=== PATIENT | male | born 1960 | race Caucasian/White ===

== ENCOUNTER → 2016-08-30 | Outpatient (CLI) | payer OTHER | END | disposition home or self-care (01) | LOC: CRE 10:41 | PROVIDERS: ATTEND Specialist | DX: I21.3 ST elevation (STEMI) myocardial infarction of unspecified site (principal); Z95.5 Presence of coronary angioplasty implant and graft | CPT/HCPCS: 93797 ==

== ENCOUNTER 2018-12-09 22:00 | Emergency (ER) | payer OTHER ==
[~2018-12-09] VITALS: Ht 170.2 cm; Wt 82.9 kg
[~2018-12-09 22:00] MED LIST: ASPI-535 PO; ATOR-2 PO; ATOR20TA38 PO; AZIT250T13 PO; BENZ1LOZ52 MM; CARV3.1260 PO; CLOP75TA19 PO; EMPA25TA PO; GLIP10TA14 PO; LISI-313 PO; LISI2.5T59 PO; MTF1000T PO
[2018-12-09 22:04] VITALS: Ht 170.2 cm; Wt 82.9 kg
[2018-12-09] MEDS ORDERED: SOD CHLORIDE 0.9% 500 ML IV STA (22:28)
[2018-12-09] MEDS ORDERED: morphine 4 MG/ML VIAL IV STA (22:28)
[2018-12-09] MEDS ORDERED: ONDANSETRON 4 MG INJ IV STA (22:28)
--- NOTE | 2018-12-10 04:44 | ERD ---
ER Documentation Chief Complaint Chief Complaint [id number],from home,epigastric pain,hx [place] X2 HPI This is a 58-year-old male comes in with planes of shortness of breath and diaphoresis that started around. Pain is in the epigastric region radiates to his chest. His recent Chris cath at another hospital and found to have an occluded stent. Stent was reopened. He said this feels similar to previous episodes. Denies fevers or chills. Denies any other current complaints. ROS All systems reviewed and are negative except as per history of present illness. Medications Home Meds Reported Medications Benzocaine/Menthol* (Cepacol* Sore Throat Lozenges) 1 Each Lozenge, 1 EACH MM q2h PRN for SORE THROAT, LOZENGE 12/10/18 Atorvastatin* (Atorvastatin*) 80 Mg Tablet, 80 MG PO QHS, #30 TAB 12/10/18 Metformin* (Glucophage*) 1,000 Mg Tablet, 1000 MG PO DAILY, #30 TAB 12/10/18 Carvedilol* (Carvedilol*) 3.125 Mg Tablet, 3.125 MG PO BID, #60 TAB 12/10/18 Clopidogrel Bisulfate* (Clopidogrel Bisulfate*) 75 Mg Tablet, 75 MG PO DAILY, #30 TAB 12/10/18 Lisinopril* (Lisinopril*) 2.5 Mg Tablet, 2.5 MG PO DAILY, #30 TAB 12/10/18 Aspirin Ec (Aspir 81) 81 Mg Tablet.dr, 81 MG PO DAILY, #30 TAB 12/10/18 Azithromycin* (Azithromycin*) 250 Mg Tablet, 250 MG PO DAILY, #4 TAB 12/10/18 Empagliflozin (Jardiance) 25 Mg Tablet, 25 MG PO, TAB 12/10/18 Atorvastatin Calcium* (Atorvastatin Calcium*) 20 Mg Tablet, 20 MG PO QHS, #30 TAB 12/10/18 Glipizide* (Glipizide*) 10 Mg Tablet, 10 MG PO DAILY, TAB 12/10/18 Lisinopril* (Lisinopril*) 5 Mg Tablet, 5 MG PO QPM, #30 TAB 12/10/18 Allergies Allergies: Coded Allergies: No Known Allergy (Unverified , 12/09/18) PMhx/Soc History of Surgery: Yes (HERNIA REPAIR, STENT PLACEMENT) Hx Neurological Disorder: Yes (TIA) Hx Respiratory Disorders: No Hx Cardiac Disorders: Yes ([place]) Hx Psychiatric Problems: No Hx Miscellaneous Medical Probl: Yes (DM) Hx Alcohol Use: Yes (OCCASIONAL) Hx Substance Use: No Hx Tobacco Use: No Smoking Status: Never smoker Physical Exam Vitals Vital Signs Date Temp Pulse Resp B/P (MAP) Pulse Ox O2 O2 Flow FiO2 Time Delivery Rate 12/10/18 87 10 96/62 (73) 97 Room Air 04:00 12/10/18 97 12 92/63 (73) 97 Room Air 01:28 12/09/18 94 15 101/67 97 Room Air 23:46 (78) 12/09/18 87 15 124/80 99 Room Air 22:15 (95) 12/09/18 98.4 85 16 124/80 98 22:04 (95) Physical Exam Const: No acute distress Head: Atraumatic Eyes: Normal Conjunctiva ENT: Normal External Ears, Nose and Mouth. Neck: Full range of motion. No meningismus. Resp: Clear to auscultation bilaterally Cardio: Regular rate and rhythm, no murmurs Abd: Soft, non tender, non distended. Normal bowel sounds Skin: No petechiae or rashes Back: No midline or flank tenderness Ext: No cyanosis, or edema Neur: Awake and alert Psych: Normal Mood and Affect Result Diagram: 12/09/18220412/09/182204 Results 24 hrs Laboratory Tests Test 12/09/18 22:05 12/09/18 22:45 12/10/18 03:54 White Blood Count 11.9 10^3/ul Red Blood Count 5.14 10^6/ul Hemoglobin 13.6 g/dl Hematocrit 42.9 % Mean Corpuscular Volume 83.5 fl Mean Corpuscular Hemoglobin 26.5 pg Mean Corpuscular 31.7 g/dl Hemoglobin Concent Red Cell Distribution Width 12.7 % Platelet Count 588 10^3/UL Mean Platelet Volume 9.0 fl Immature Granulocytes % 0.800 % Neutrophils % 65.8 % Lymphocytes % 22.8 % Monocytes % 7.1 % Eosinophils % 3.0 % Basophils % 0.5 % Nucleated Red Blood Cells % 0.0 /100WBC Immature Granulocytes # 0.100 10^3/ul Neutrophils # 7.8 10^3/ul Lymphocytes # 2.7 10^3/ul Monocytes # 0.8 10^3/ul Eosinophils # 0.4 10^3/ul Basophils # 0.1 10^3/ul Nucleated Red Blood Cells # 0.0 10^3/ul Sodium Level 139 mmol/L Potassium Level 4.1 mmol/L Chloride Level 102 mmol/L Carbon Dioxide Level 29 mmol/L Anion Gap 8 Blood Urea Nitrogen 14 mg/dl Creatinine 0.84 mg/dl Est Glomerular Filtrat > 60 mL/min Rate mL/min Glucose Level 160 mg/dl Calcium Level 9.0 mg/dl Total Bilirubin 0.4 mg/dl Direct Bilirubin 0.00 mg/dl Indirect Bilirubin 0.4 mg/dl Aspartate Amino 32 IU/L Transf (AST/SGOT) Alanine 73 IU/L Aminotransferase (ALT/SGPT) Alkaline Phosphatase 62 IU/L Troponin I < 0.012 ng/ml < 0.012 ng/ml Total Protein 7.4 g/dl Albumin 3.7 g/dl Globulin 3.70 g/dl Albumin/Globulin Ratio 1.00 Lipase 97 U/L Urine Color YELLOW Urine Clarity CLEAR Urine pH 5.0 Urine Specific [place] 1.039 Urine Ketones 1+ mg/dL Urine Nitrite NEGATIVE mg/dL Urine Bilirubin NEGATIVE mg/dL Urine Urobilinogen NEGATIVE mg/dL Urine Leukocyte Esterase NEGATIVE Mercedes/ul Urine Hemoglobin NEGATIVE mg/dL Urine Glucose 3+ mg/dL Urine Total Protein NEGATIVE mg/dl Current Medications Medications Dose Sig/Nicholas Start Time Status Last (Trade) Ordered Route PRN Stop Time Admin Dose Reason Admin Sodium 500 ml @ Q1H STAT 12/09/18 DC 12/09/18 Chloride 500 mls/hr IV 22:28 22:37 12/09/18 23:27 Morphine 4 mg ONCE STAT 12/09/18 DC 12/09/18 Sulfate IV 22:28 22:36 (morphine) 12/09/18 22:30 Ondansetron 4 mg ONCE STAT 12/09/18 DC 12/09/18 HCl (Zofran IV 22:28 22:36 Inj) 12/09/18 22:30 Procedures/MDM EKG: Rate/Rhythm: [Normal Sinus Rhythm] QRS, ST, T-waves: [No changes consistent w/ acute ischemia] Impression: [No evidence of ischemia or arrhythmia] Chest X-ray 1V Interpreted by me: Soft Tissue: No acute abnormalities Bones: No acute abnormalities Mediastinum/Cardiac Silhouette/Lungs: [No acute abnormalities] Patient's symptoms are concerning for cardiac cause will require inpatient workup and continuous monitoring. Further w/u for ischemia, arrhythmia, PE or dissection will be deferred to the inpatient team. Patient will be transferred to [facility] via [facility] Accepting Care Team: Current data and ongoing care discussed. Time: 4 AM Primary Provider: Harinder REARDON Consulting: Per [place] Outstanding Data: none Departure Diagnosis: Primary Impression: Epigastric pain Condition: Serious MATT NEGERTE Dec 10, 2018 04:44
[2018-12-10] MEDS ORDERED: SOD CHLORIDE 0.9% 500 ML IV STA (06:52)
[2018-12-10 08:31] VITALS: BP 108/60; PULSE 87; RESP 15
== END 2018-12-10 08:52 | disposition short-term general hospital (02) ==
LOC: E/R 22:00
DX: R10.13 Epigastric pain (principal); E11.9 Type 2 diabetes mellitus without complications; I25.2 Old myocardial infarction; Z79.02 Long term (current) use of antithrombotics/antiplatelets; Z79.82 Long term (current) use of aspirin; Z79.84 Long term (current) use of oral hypoglycemic drugs; Z86.73 Personal history of transient ischemic attack (TIA), and cerebral infarction without residual deficits; Z98.61 Coronary angioplasty status
CPT/HCPCS: 36415; 71045; 80053; 81003; 83690; 84484; 85025; 93005; 96374; 96375; 99285; J2270; J2405; J7040